=== PATIENT | male | born 1955 | race Caucasian/White ===

== ENCOUNTER 2021-10-31 06:18 | Day surgery (SDC) | payer MEDICARE ==
[2021-10-27 15:28] LABS: BASOPHILS % (AUTO) 0.5 % (0-1); EOSINOPHILS # (AUTO) 0.1 X10'3 (0-0.9); EOSINOPHILS % (AUTO) 0.6 % (0-6); LYMPHOCYTES # (AUTO) 1.4 X10'3 (1.1-4.8); LYMPHOCYTES % (AUTO) 16.9 % (21-51); MEAN CORPUSCULAR HEMOGLOBIN 31.7 PG (27.0-31.0); MEAN CORPUSCULAR VOLUME 93.3 FL (78-98); MEAN PLATELET VOLUME 7.8 FL (7.4-10.4); MONOCYTES # (AUTO) 0.7 X10'3 (0-0.9); MONOCYTES % (AUTO) 8.2 % (2-12); NEUTROPHILS # (AUTO) 6.3 X10'3 (1.8-7.7); NEUTROPHILS % (AUTO) 73.8 % (42-75); PRE OP HEMATOCRIT 46.8 % (42.0-52.0); PRE OP HEMOGLOBIN 15.9 g/dL (14.0-17.9); PRE OP PLATELET COUNT 265 X10'3 (140-440); RED BLOOD COUNT 5.01 X10'6 (4.70-6.10); RED CELL DISTRIBUTION WIDTH 13.7 % (11.5-14.5)
[2021-10-27 16:05] LABS: ALBUMIN 3.6 G/DL (3.4-5.0); ALBUMIN/GLOBULIN RATIO 1.1 (1.1-1.5); BLOOD UREA NITROGEN 14 MG/DL (7-18); BUN/CREATININE RATIO 13.5 (5.4-32.0); CHLORIDE 105 MMOL/L (99-107); CREATININE 1.04 MG/DL (0.60-1.10); PRE OP ALT 28 U/L (30-65); PRE OP ANION GAP 9 (8-16); PRE OP AST 18 U/L (10-37); PRE OP BILIRUB, TOTAL 0.3 MG/DL (0.0-1.0); PRE OP GLUCOSE 97 MG/DL (70-104); PRE OP POTASSIUM 4.1 MMOL/L (3.4-5.1); PRE OP SODIUM 141 MMOL/L (135-145); TOTAL CARBON DIOXIDE 27.4 MMOL/L (24-32); TOTAL PROTEIN 6.8 G/DL (6.4-8.2); eGFR 72 ML/MIN
[~2021-10-31] VITALS: Ht 177.8 cm; Wt 80.1 kg
[2021-10-31] VITALS (8 sets, daily range): BP systolic 127–147; BP diastolic 77–94
[~2021-10-31 06:18] MED LIST: cefazolin/dext.iso 2gm/50ml IV ONE; famotidine 20mg tablet PO ONE; ringers solution, lacted 1,000 ML IV SCH
[2021-10-31] MEDS ORDERED: sevoflurane 250ml liquid IH ONE (09:42)
[2021-10-31] MEDS ORDERED: midazolam 1 mg/ML 2ml injection ONE (09:47)
[2021-10-31] MEDS ORDERED: fentaNYL/PF 50MCG/1 ML 2ML syringe ONE ×2 (09:47→10:18)
[2021-10-31] MEDS ORDERED: ROPIVAcaine 0.2% (10 MG/5 ML) BOLUS INJECTION INTERSCALE PRN (10:30)
[2021-10-31] MEDS ORDERED: ondansetron/PF 4mg/2ml inj IV PRN (10:30)
[2021-10-31] MEDS ORDERED: morphine 4 MG/ML inj SYRINge IV PRN (10:30)
[2021-10-31] MEDS ORDERED: ROPIVAcaine 0.2%/PF PUMP/bolus 545 ML INTERSCALE SCH (10:30)
[2021-10-31] MEDS ORDERED: ringers solution, lacted 1,000 ML IV SCH (10:30)
[2021-10-31] MEDS ORDERED: HYDROmorphone/PF 0.2 MG/ML SYRINGE IV PRN ×2 (10:30)
[2021-10-31] MEDS ORDERED: morphine 2 MG/ML inj. syringe IV PRN (10:30)
[2021-10-31] MEDS ORDERED: ondansetron/PF 4mg/2ml inj ONE (10:55)
[2021-10-31] MEDS ORDERED: propofol inj 20 ML IV ONE (10:55)
[2021-10-31] MEDS ORDERED: LIDOcaine 1%/PF 5ML 10 MG/ML VIAL ONE (10:55)
[2021-10-31] MEDS ORDERED: dexamethasone sod phosphate 4mg/ml inj. ONE (10:55)
[2021-10-31] MEDS ORDERED: ROPIVAcaine 0.5% (5mg/ml) 30ml vial ONE (10:55)
[2021-10-31] MEDS ORDERED: glycopyrrolate 0.2mg/ml inj ONE (10:55)
[2021-10-31] MEDS ORDERED: ePHEDrine 50MG/ML INJ. ONE (11:01)
--- NOTE | 2021-10-31 11:17 | NUR ---
Received from OR via [facility] , accompanied by Anesthesiologist JAVIER and report given by Anesthesiolgist. PATIENT WITH 20G PIV IN LEFT HAND AND IS RUNNING LR AT 100. DENIES PAIN. RIGHT UE IN SLING AND WITH ONLY MIDDLE FINGER MOVEMENT. OTHERS ALL STILL BLOCKED. PATIENT IN SLING WITH AN ANTERIOR ISLAND DRESSING THAT IS CDI. NERVE BLOCK SITE EXITING ON LEFT SIDE OF NECK. 10L MASK ON WITH 100% SATURATIONS. Addendum: 10/31/21 at 1144 by Humble Hernandez RN, RN Amended: Links added.
[2021-10-31] MEDS ORDERED: HYDROcodone/acetaminophen 10/325mg tab PO PRN (11:45)
--- NOTE | 2021-10-31 12:32 | NUR ---
ALL DC CRITERIA FOR HOME HAS BEEN ACHIEVED. VSS. DENIES PAIN. DRESSING CDI. ON Q EDUCATION PROVIDED AND PAMPHLETS ON HOW IT WORKS AND HOW TO DC WERE INCLUDED WITH 2 BANDAIDS. PATIENT ABLE TO SAFELY AMBULATE WITHOUT ASSIST AND TRANSFER IN TO WHEELCHAIR TO VEHICLE. PATIENT IV OUT WITHOUT COMPLICATIONS. CARE TURNED OVER TO WHOM DROVE HIM HOME. Addendum: 10/31/21 at 1338 by Humble Hernandez RN, RN Amended: Links added.
== END 2021-10-31 12:32 | disposition home or self-care (01) ==
LOC: PAS 06:18
PROVIDERS: ATTEND Orthopaedic Surgery
DX: S43.431A Superior glenoid labrum lesion of right shoulder, initial encounter (principal); G89.18 Other acute postprocedural pain; M19.011 Primary osteoarthritis, right shoulder; K21.9 Gastro-esophageal reflux disease without esophagitis; Z98.890 Other specified postprocedural states; Z88.8 Allergy status to other drugs, medicaments and biological substances; Z88.5 Allergy status to narcotic agent; Z79.899 Other long term (current) drug therapy; Z20.822 Contact with and (suspected) exposure to COVID-19; X58.XXXA Exposure to other specified factors, initial encounter; Y93.89 Activity, other specified; Y92.89 Other specified places as the place of occurrence of the external cause; Y99.8 Other external cause status
CPT/HCPCS: 29828; 36415; 64416; 76942; 80053; 82948; 85025; 93005; C1713; J0690; J1100; J2250; J2405; J2704; J2795; J3010; J3490; J7120; U0003; U0005; Z7506; Z7508; Z7512; A4565; A4618; A6449; A7000

== ENCOUNTER 2021-11-05 16:08 | Emergency (ER) | payer MEDICARE ==
[~2021-11-05] VITALS: Ht 177.8 cm; Wt 77.0 kg
[2021-11-05] MEDS ORDERED: NO HOME MEDS (17:04)
[2021-11-05] MEDS ORDERED: pantoprazole 40 MG vial IV ONE (18:25)
[2021-11-05] MEDS ORDERED: normal saline 1000ML IV soln IVB ONE (18:25)
[2021-11-05] MEDS ORDERED: ondansetron/PF 4mg/2ml inj IV ONE (18:25)
[2021-11-05] MEDS ORDERED: morphine 4 MG/ML inj SYRINge IV ONE (18:25)
[2021-11-05] MEDS ORDERED: pantoprazole 40MG/NS 100ML BAG 100 ML IV ONE (18:45)
[2021-11-05 18:53] VITALS: BP 139/98
[2021-11-05 19:04] LABS: BASOPHILS # (AUTO) 0.1 X10'3 (0-0.2); BASOPHILS % (AUTO) 0.7 % (0-1); EOSINOPHILS # (AUTO) 0.1 X10'3 (0-0.9); EOSINOPHILS % (AUTO) 0.9 % (0-6); HEMATOCRIT 51.6 % (42.0-52.0); HEMOGLOBIN 17.9 g/dl (14.0-17.9); LYMPHOCYTES # (AUTO) 1.9 X10'3 (1.1-4.8); LYMPHOCYTES % (AUTO) 18.1 % (21-51); MEAN CORPUSCULAR HEMOGLOBIN 32.1 PG (27.0-31.0); MEAN CORPUSCULAR HGB CONC 34.6 g/dL (33.0-36.5); MEAN CORPUSCULAR VOLUME 92.8 FL (78-98); MEAN PLATELET VOLUME 7.9 FL (7.4-10.4); MONOCYTES # (AUTO) 1.1 X10'3 (0-0.9); MONOCYTES % (AUTO) 10.2 % (2-12); NEUTROPHILS # (AUTO) 7.4 X10'3 (1.8-7.7); NEUTROPHILS % (AUTO) 70.1 % (42-75); PLATELET COUNT 315 X10'3 (140-440); RED BLOOD COUNT 5.56 X10'6 (4.70-6.10); RED CELL DISTRIBUTION WIDTH 13.8 % (11.5-14.5); WHITE BLOOD COUNT 10.6 X10'3 (4.5-11.0)
[2021-11-05 19:11] LABS: CLARITY,URINE CLEAR (Clear); COLOR,URINE YELLOW (Yellow); GLUCOSE, URINE NEGATIVE (Neg); KETONES,URINE NEGATIVE (Neg); LEUKOCYTE ESTERASE ,URINE NEGATIVE (Neg); NITRITES, URINE NEGATIVE (Neg); OCCULT BLOOD,URINE SMALL (Neg); PH,URINE 5.5 (4.8-8.0); PROTEIN,URINE NEGATIVE (Neg); UROBILINOGEN,URINE 0.2 E.U/dL (0.2-1.0)
[2021-11-05 19:16] LABS: UA COLLECTION TYPE NON-SPECIFIED
[2021-11-05 19:17] LABS: ALANINE AMINOTRANSFERASE 92 U/L (12-78); ALBUMIN 3.6 G/DL (3.4-5.0); ALBUMIN/GLOBULIN RATIO 0.9 (1.1-1.5); ALKALINE PHOSPHATASE 70 IU/L (46-116); ANION GAP 11 (8-16); ASPARTATE AMINO TRANSFERASE 32 U/L (10-37); BILIRUBIN,TOTAL 0.6 MG/DL (0.1-1.0); BLOOD UREA NITROGEN 18 MG/DL (7-18); BUN/CREATININE RATIO 15.4 (5.4-32.0); CALCIUM 10.2 MG/DL (8.5-10.1); CHLORIDE 102 MMOL/L (99-107); CREATININE 1.17 MG/DL (0.60-1.10); GLUCOSE 118 MG/DL (70-104); POTASSIUM 3.8 MMOL/L (3.5-5.1); SODIUM 141 MMOL/L (135-145); TOTAL CARBON DIOXIDE 28.4 MMOL/L (24-32); TOTAL PROTEIN 7.8 G/DL (6.4-8.2); eGFR 63 ML/MIN
[2021-11-05 19:18] LABS: BACTERIA,URINE FEW /HPF (Neg); MUCUS STRANDS FEW /LPF (Neg); SQUAMOUS EPITHELIAL CELL,UR FEW /LPF (FEW); WBC,URINE 0-4 /HPF (0-4)
[2021-11-05 19:19] LABS: LIPASE 64 U/L (73-393); MAGNESIUM 1.9 MG/DL (1.5-2.4)
[2021-11-05] MEDS ORDERED: FAMO40TA86 PO (21:49)
== END 2021-11-05 22:23 | disposition home or self-care (01) ==
LOC: ER 16:09
DX: K21.9 Gastro-esophageal reflux disease without esophagitis (principal); R07.89 Other chest pain; Z98.890 Other specified postprocedural states; Z88.8 Allergy status to other drugs, medicaments and biological substances
CPT/HCPCS: 36415; 71046; 80053; 81001; 83690; 83735; 84484; 85025; 93005; 96361; 96374; 96375; 99285; C9113; J2405; J7030

== ENCOUNTER 2025-01-12 12:30 | Outpatient (CLI) | payer MEDICARE ==
[~2025-01-12 12:30] MED LIST changes: +FAMO40TA86 PO; +NO HOME MEDS; -cefazolin/dext.iso 2gm/50ml IV ONE; -famotidine 20mg tablet PO ONE; -ringers solution, lacted 1,000 ML IV SCH
--- NOTE | 2025-01-12 13:55 | RADIOLOGY REPORT ---
Exam: US US NON VASCULAR Date: 01/12/2025 12:57 PM Clinical History: OTHER INTRA-ABDOMINAL AND PELVIC SWELLING, MASS AND LUMP Comparison: None Technique: Targeted sonographic evaluation of the soft tissues of the right groin was obtained utilizing graysca le and color Doppler imaging. Findings/Impression: Complicated fluid collection with septations in the right groin measuring 6.9 x 2.4 x 3.4 cm is sugge stive of a hematoma.
== END 2025-01-12 23:59 | disposition home or self-care (01) ==
LOC: RAD 12:30
PROVIDERS: ATTEND Surgery
DX: R19.09 Other intra-abdominal and pelvic swelling, mass and lump (principal)
CPT/HCPCS: 76881

== ENCOUNTER 2025-04-12 16:31 | Emergency (ER) | payer MEDICARE ==
[~2025-04-12] VITALS: Ht 177.8 cm; Wt 74.7 kg
--- NOTE | 2025-04-12 17:21 | ELECTROCARDIOGRAPH REPORT ---
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 Junior Grimm Measurements Intervals [place] Rate: 90 P: 64 NM: 141 QRS: 69 QRSD: 80 T: 32 QT: 325 QTc: 398 Interpretive Statements Sinus rhythm Probable left atrial enlargement Electronically Signed On 04-13-2025 19:29:[address] Junior Grimm Please click the below link to view image of tracing.
[2025-04-12 18:49] VITALS: BP 135/104; PULSE 70; RESP 18; TEMP 98.7; O2SAT 96
== END 2025-04-12 21:46 | disposition left against medical advice (07) ==
LOC: ER 16:31
DX: E86.0 Dehydration (principal); Z53.21 Procedure and treatment not carried out due to patient leaving prior to being seen by health care provider
CPT/HCPCS: 93005